=== PATIENT | male | born 1955 | race African-American/Black ===

== ENCOUNTER 2019-05-01 05:21 | Inpatient (IN) | payer MEDICARE, MEDICAID ==
[~2019-05-01] VITALS: Ht 180.3 cm; Wt 136.1 kg
[2019-05-01] VITALS (31 sets, daily range): BP systolic 107–187; BP diastolic 63–96
[~2019-05-01 05:21] MED LIST: ACET-2178 PO; ALLO100T PO; AMLO2.5T45 PO; ASPI-1393 PO; BENA20TA10 PO; COLC0.6T66 PO; DOCU-150 PO; HYDR-519 PO; INDO25CA18 PO; TRAM50TA3 PO
[2019-05-01] MEDS ORDERED: THROMBIN (BOVINE) 5000 UNITS/VIAL TOP ONE (06:12)
[2019-05-01] MEDS ORDERED: LIDOCAINE HCL/EPINEPHRINE 1%-EPI 1:100,000 20 ML VIAL ONE ×2 (06:13→06:24)
[2019-05-01] MEDS ORDERED: BACITRACIN 50,000 UNITS/VIAL ONE (06:13)
[2019-05-01] MEDS ORDERED: LACTATED RINGERS 1,000 ML IV SCH (06:20)
[2019-05-01] MEDS ORDERED: GLYCOPYRROLATE 0.2 MG/ML 2ML VIAL ONE (06:49)
[2019-05-01] MEDS ORDERED: NEOSTIGMINE METHYLSULFATE 1MG/ML 10 ML VIAL ONE (06:49)
[2019-05-01] MEDS ORDERED: PROPOFOL 200MG/20ML VIAL IV ONE ×2 (06:49→07:57)
[2019-05-01] MEDS ORDERED: FENTANYL CITRATE/PF 50MCG/ML 2ML VIAL ONE ×2 (06:49→08:03)
[2019-05-01] MEDS ORDERED: MIDAZOLAM HCL 2 MG/2 ML VIAL ONE (06:49)
[2019-05-01] MEDS ORDERED: ROCURONIUM BROMIDE 10MG/ML VIAL 5ML IV ONE ×3 (06:49→07:55)
[2019-05-01] MEDS ORDERED: LIDOCAINE HCL/PF 1% 10 MG/ML 5ML VIAL ONE (06:50)
[2019-05-01] MEDS ORDERED: DEXAMETHASONE 4MG/ML 1ML VIAL ONE (06:51)
[2019-05-01] MEDS ORDERED: ONDANSETRON HCL 4MG/2ML INJ ONE (06:51)
[2019-05-01] MEDS ORDERED: SODIUM CHLORIDE 0.9% 10ML VIAL ONE (06:51)
[2019-05-01] MEDS ORDERED: SUCCINYLCHOLINE CHLORIDE 200MG/10ML IV ONE (06:51)
[2019-05-01] MEDS ORDERED: CEFAZOLIN SODIUM 1000MG/VIAL ONE (06:51)
[2019-05-01] MEDS ORDERED: METOCLOPRAMIDE HCL 10MG/2ML VIAL ONE (06:51)
[2019-05-01] MEDS ORDERED: PHENYLEPHRINE HCL 10 MG/ML 1ML (IV VIAL) IV ONE (06:51)
[2019-05-01] MEDS ORDERED: EPHEDRINE SULFATE 50MG/ML VIAL ONE (06:51)
[2019-05-01] MEDS ORDERED: FENTANYL CITRATE/PF 50MCG/ML 5ML VIAL ONE (06:51)
[2019-05-01] MEDS ORDERED: GABA600T PO (08:45)
[2019-05-01] MEDS ORDERED: TAMS0.4C31 PO (08:45)
[2019-05-01] MEDS ORDERED: GABA800T97 PO (08:45)
[2019-05-01] MEDS ORDERED: MORP15TA67 PO (08:45)
[2019-05-01] MEDS ORDERED: BENA1TAB21 PO (08:45)
[2019-05-01] MEDS ORDERED: MELO-106 PO (08:47)
[2019-05-01] MEDS ORDERED: NAPR220T66 PO (08:47)
[2019-05-01] MEDS ORDERED: LABETALOL HCL 5MG/ML VIAL 20ML IV ONE (09:44)
[2019-05-01] MEDS ORDERED: ONDANSETRON HCL 4MG/2ML INJ IV PRN (10:00)
[2019-05-01] MEDS ORDERED: DIPHENHYDRAMINE INJ IV PRN (11:00)
[2019-05-01] MEDS ORDERED: NALOXONE INJ IV PRN (11:00)
[2019-05-01] MEDS ORDERED: ONDANSETRON INJ IV PRN (11:00)
[2019-05-01] MEDS: MORPHINE SULFATE 4 MG/ML CPJ (NOT FOR IM USE) IV PRN (11:03)
[2019-05-01] MEDS: DEXT 5%/LACTATED RINGERS 1,000 ML IV SCH ×2 (11:06→18:10)
[2019-05-01] MEDS: HYDROMORPHONE PCA 10MG/50ML IV PRN (11:24)
[2019-05-01] MEDS: DEXAMETHASONE 4MG/ML 1ML VIAL IV SCH ×3 (12:18→23:50)
[2019-05-01] MEDS ORDERED: BISACODYL 5MG TABLET PO PRN (13:15)
[2019-05-01] MEDS: NICARDIPINE 100 MG in SODIUM CHLORIDE 0.9% 60 ML IV PRN (13:19)
[2019-05-01] MEDS ORDERED: CEFAZOLIN SODIUM 1000MG/VIAL IV SCH (14:00)
[2019-05-01] MEDS: CEFAZOLIN 1000MG PREMIX 50 ML IV SCH ×2 (14:05→21:19)
[2019-05-01] MEDS: IPRATROPIUM/ALBUTEROL 0.5-3(2.5)MG/3ML NEB HHN SCH (20:51)
[2019-05-02] VITALS (90 sets, daily range): BP systolic 101–187; BP diastolic 51–106
[2019-05-02] MEDS: IPRATROPIUM/ALBUTEROL 0.5-3(2.5)MG/3ML NEB HHN SCH ×4 (01:31→20:12)
[2019-05-02] MEDS: DEXT 5%/LACTATED RINGERS 1,000 ML IV SCH ×4 (03:00→21:29)
[2019-05-02] MEDS: CEFAZOLIN 1000MG PREMIX 50 ML IV SCH ×3 (05:12→21:29)
[2019-05-02] MEDS: DEXAMETHASONE 4MG/ML 1ML VIAL IV SCH ×2 (05:12→11:48)
[2019-05-02] MEDS: HYDROMORPHONE PCA 10MG/50ML IV PRN ×2 (05:43→20:10)
[2019-05-02 05:49] LABS: HEMATOCRIT. 36.4 % (42.0-52.0); HEMOGLOBIN. 12.3 g/dL (14.0-18.0); MEAN CORPUSCULAR HEMOGLOBIN 30.4 pg (28.0-32.0); MEAN PLATELET VOLUME 7.4 fl (7.4-10.4); PLATELET 263 x1000/uL (130-400); RED BLOOD CELL COUNT 4.04 mill/uL (4.7-6.1); RED CELL DISTRIBUTION WIDTH 14.7 % (11.6-14.6)
[2019-05-02 06:37] LABS: CHLORIDE 105 mEq/L (98-107)
[2019-05-02] MEDS: NICARDIPINE 100 MG in SODIUM CHLORIDE 0.9% 60 ML IV PRN ×2 (07:07→18:34)
[2019-05-02] MEDS: DOCUSATE SODIUM 250MG CAPSULE PO SCH (08:51)
[2019-05-02] MEDS: AMLODIPINE 5MG TABLET PO SCH (08:53)
[2019-05-02] MEDS: BENAZEPRIL 10MG TABLET PO SCH (08:53)
[2019-05-02] MEDS ORDERED: DIAZEPAM 5 MG TABLET PO PRN (10:30)
[2019-05-02] MEDS: MORPHINE SULFATE 4 MG/ML CPJ (NOT FOR IM USE) IV PRN (11:49)
[2019-05-02 12:29] LABS: PLATELET ESTIMATE NORMAL
[2019-05-02] MEDS: HYDROCODONE/APAP 7.5/325MG 1 TAB TABLET PO PRN ×2 (16:08→21:28)
[2019-05-03] VITALS (75 sets, daily range): BP systolic 96–159; BP diastolic 54–85
[2019-05-03] MEDS: HYDROCODONE/APAP 7.5/325MG 1 TAB TABLET PO PRN ×3 (04:22→21:38)
[2019-05-03] MEDS: NICARDIPINE 100 MG in SODIUM CHLORIDE 0.9% 60 ML IV PRN ×2 (04:23→16:15)
[2019-05-03] MEDS: CEFAZOLIN 1000MG PREMIX 50 ML IV SCH (05:37)
[2019-05-03 06:18] LABS: HEMATOCRIT. 35.3 % (42.0-52.0); HEMOGLOBIN. 12.1 g/dL (14.0-18.0); MEAN CORPUSCULAR HEMOGLOBIN 30.9 pg (28.0-32.0); MEAN PLATELET VOLUME 7.6 fl (7.4-10.4); PLATELET 272 x1000/uL (130-400); RED BLOOD CELL COUNT 3.92 mill/uL (4.7-6.1); RED CELL DISTRIBUTION WIDTH 14.8 % (11.6-14.6)
[2019-05-03 06:24] LABS: CHLORIDE 106 mEq/L (98-107)
[2019-05-03 07:27] LABS: PLATELET ESTIMATE NORMAL
[2019-05-03] MEDS: DOCUSATE SODIUM 250MG CAPSULE PO SCH (09:11)
[2019-05-03] MEDS: AMLODIPINE 5MG TABLET PO SCH ×2 (09:12→20:19)
[2019-05-03] MEDS: BENAZEPRIL 10MG TABLET PO SCH ×2 (09:12→20:19)
[2019-05-03] MEDS: IPRATROPIUM/ALBUTEROL 0.5-3(2.5)MG/3ML NEB HHN PRN ×3 (09:27→21:11)
[2019-05-03] MEDS: NEBIVOLOL HCL 5 MG TABLET PO SCH (13:28)
[2019-05-03] MEDS: HYDROMORPHONE PCA 10MG/50ML IV PRN (17:02)
[2019-05-04] VITALS (39 sets, daily range): BP systolic 108–171; BP diastolic 46–92
[2019-05-04 05:42] LABS: BASOPHILS % 0.6 % (0.0-2.0); EOSINOPHILS % 0.1 % (0.0-5.0); HEMATOCRIT. 36.4 % (42.0-52.0); HEMOGLOBIN. 12.3 g/dL (14.0-18.0); LYMPHOCYTES % 13.2 % (20.0-50.0); MEAN CORPUSCULAR HEMOGLOBIN 30.5 pg (28.0-32.0); MEAN CORPUSCULAR VOLUME 90.3 fL (80.0-94.0); MEAN PLATELET VOLUME 7.5 fl (7.4-10.4); MONOCYTES % 7.5 % (2.0-8.0); NEUTROPHILS % 78.6 % (40.0-76.0); PLATELET 251 x1000/uL (130-400); RED BLOOD CELL COUNT 4.03 mill/uL (4.7-6.1); RED CELL DISTRIBUTION WIDTH 15.1 % (11.6-14.6)
[2019-05-04 06:14] LABS: CHLORIDE 105 mEq/L (98-107)
[2019-05-04] MEDS: AMLODIPINE 5MG TABLET PO SCH ×2 (08:45→20:03)
[2019-05-04] MEDS: NEBIVOLOL HCL 5 MG TABLET PO SCH (08:45)
[2019-05-04] MEDS: DOCUSATE SODIUM 250MG CAPSULE PO SCH (08:45)
[2019-05-04] MEDS: BENAZEPRIL 10MG TABLET PO SCH ×2 (08:46→20:02)
[2019-05-04] MEDS: MORPHINE SULFATE 4 MG/ML CPJ (NOT FOR IM USE) IV PRN ×3 (08:47→17:49)
[2019-05-04] MEDS: LIDOCAINE 5% PATCH TOP SCH (10:09)
[2019-05-04] MEDS: HYDROCODONE/APAP 7.5/325MG 1 TAB TABLET PO PRN ×2 (10:50→19:47)
[2019-05-04] MEDS: GABAPENTIN 300MG CAPSULE PO SCH ×2 (13:25→22:41)
[2019-05-05] VITALS: BP 142/58
[2019-05-05] MEDS: MORPHINE SULFATE 4 MG/ML CPJ (NOT FOR IM USE) IV PRN (02:57)
[2019-05-05] MEDS: HYDROCODONE/APAP 7.5/325MG 1 TAB TABLET PO PRN ×3 (03:17→15:13)
[2019-05-05 04:00] VITALS: BP 102/64
[2019-05-05] MEDS: GABAPENTIN 300MG CAPSULE PO SCH ×2 (05:28→15:12)
[2019-05-05 08:00] VITALS: BP 132/65
[2019-05-05] MEDS: LIDOCAINE 5% PATCH TOP SCH (09:00)
[2019-05-05] MEDS: DOCUSATE SODIUM 250MG CAPSULE PO SCH (09:00)
[2019-05-05] MEDS: AMLODIPINE 5MG TABLET PO SCH (09:29)
[2019-05-05] MEDS: NEBIVOLOL HCL 5 MG TABLET PO SCH (09:30)
[2019-05-05] MEDS: BENAZEPRIL 10MG TABLET PO SCH (09:30)
[2019-05-05 12:00] VITALS: BP 104/67
[2019-05-05 16:00] VITALS: BP 119/47
[2019-05-05 16:57] VITALS: BP 119/47
== END 2019-05-05 17:18 | DRG 471 ==
LOC: OR 05:21 → MICUSO 05:22 → 6EST 05-04 12:58
PROVIDERS: ADMIT Neurological Surgery; ATTEND Neurological Surgery
PROC: 0RG2071 Fusion of 2 or more Cervical Vertebral Joints with Autologous Tissue Substitute, Posterior Approach, Posterior Column, Open Approach (ICD-10-PCS; principal; 2019-05-02)
PROC: 01N10ZZ Release Cervical Nerve, Open Approach (ICD-10-PCS; 2019-05-02)
PROC: 4A11X4G Monitoring of Peripheral Nervous Electrical Activity, Intraoperative, External Approach (ICD-10-PCS; 2019-05-02)
PROC: 5A09357 Assistance with Respiratory Ventilation, Less than 24 Consecutive Hours, Continuous Positive Airway Pressure (ICD-10-PCS; 2019-05-04)
PROC: BR101ZZ Fluoroscopy of Cervical Spine using Low Osmolar Contrast (ICD-10-PCS; 2019-05-04)
DX: M48.02 Spinal stenosis, cervical region (principal); G82.50 Quadriplegia, unspecified; J98.11 Atelectasis; M47.12 Other spondylosis with myelopathy, cervical region; M54.10 Radiculopathy, site unspecified; D64.9 Anemia, unspecified; E11.42 Type 2 diabetes mellitus with diabetic polyneuropathy; E11.65 Type 2 diabetes mellitus with hyperglycemia; E78.00 Pure hypercholesterolemia, unspecified; F17.210 Nicotine dependence, cigarettes, uncomplicated; G47.33 Obstructive sleep apnea (adult) (pediatric); G89.4 Chronic pain syndrome; I10 Essential (primary) hypertension; R91.1 Solitary pulmonary nodule; I25.10 Atherosclerotic heart disease of native coronary artery without angina pectoris; M10.9 Gout, unspecified; R13.10 Dysphagia, unspecified; Z82.49 Family history of ischemic heart disease and other diseases of the circulatory system; Z83.3 Family history of diabetes mellitus; Z79.84 Long term (current) use of oral hypoglycemic drugs
CPT/HCPCS: 36415; 72040; 76000; 80048; 82962; 83735; 86850; 86900; 87493; 88304; 88311; 92610; 93005; 94640; 94660; 97110; 97162; 97166; 97530; 97535; J0330; J0690; J1100; J1170; J2250; J2270; J2370; J2405; J2704; J2710; J2765; J3010; J3490; J7050; J7121; J7620

== ENCOUNTER 2020-03-20 15:13 | Inpatient (IN) | payer MEDICARE, MEDICAID, OTHER ==
[~2020-03-20] VITALS: Ht 182.9 cm; Wt 137.9 kg
[2020-03-20 16:30] LABS: BASOPHILS % 0.8 % (0.0-2.0); EOSINOPHILS % 2.9 % (0.0-5.0); HEMATOCRIT. 36.5 % (42.0-52.0); HEMOGLOBIN. 12.6 g/dL (14.0-18.0); LYMPHOCYTES % 20.2 % (20.0-50.0); MEAN CORPUSCULAR HEMOGLOBIN 31.3 pg (28.0-32.0); MEAN CORPUSCULAR VOLUME 90.9 fL (80.0-94.0); MEAN PLATELET VOLUME 7.1 fl (7.4-10.4); MONOCYTES % 6.4 % (2.0-8.0); NEUTROPHILS % 69.7 % (40.0-76.0); PLATELET 222 x1000/uL (130-400); RED BLOOD CELL COUNT 4.02 mill/uL (4.7-6.1); RED CELL DISTRIBUTION WIDTH 13.8 % (11.6-14.6)
[2020-03-20 16:36] LABS: CHLORIDE 106 mEq/L (98-107)
[2020-03-20 16:38] LABS: PROTHROMBIN TIME 10.7 sec (9.6-11.0)
[2020-03-20] MEDS ORDERED: FUROSEMIDE 20MG/2ML VIAL IVP ONE (20:15)
[2020-03-20] MEDS ORDERED: GUAIFENESIN 200MG/10ML SUGAR FREE UDC PO PRN (23:15)
[2020-03-20] MEDS ORDERED: LORAZEPAM 2MG/ML CPJ IV PRN (23:15)
[2020-03-20] MEDS ORDERED: CLONIDINE 0.1MG TABLET PO PRN (23:15)
[2020-03-20] MEDS ORDERED: ONDANSETRON HCL 4MG/2ML INJ IV PRN (23:15)
[2020-03-20] MEDS ORDERED: DOCUSATE SODIUM 100MG CAPSULE PO PRN (23:15)
[2020-03-20] MEDS ORDERED: ACETAMINOPHEN 325MG TABLET PO PRN (23:15)
[2020-03-20] MEDS ORDERED: ENOXAPARIN 40MG/0.4ML SYR SUBCUT SCH (23:15)
[2020-03-20] MEDS ORDERED: MAGNESIUM/ALUMINUM HYDROXIDE/SIMETHICONE 30ML UDC PO PRN (23:15)
[2020-03-20] MEDS ORDERED: BACL-141 PO (23:37)
[2020-03-20] MEDS ORDERED: ALLO100T PO (23:37)
[2020-03-20] MEDS ORDERED: GABA800T PO (23:37)
[2020-03-20] MEDS ORDERED: BENA5TAB6 PO (23:37)
[2020-03-20] MEDS ORDERED: AMLO5TAB88 PO (23:37)
[2020-03-20 23:50] VITALS: BP 132/68
[2020-03-21] VITALS: BP 132/57
[2020-03-21] MEDS: HYDROCODONE/ACETAMINOPHEN 5/325MG TABLET PO PRN ×3 (00:26→21:06)
[2020-03-21 04:00] VITALS: BP 112/56
[2020-03-21 07:10] LABS: BASOPHILS % 0.9 % (0.0-2.0); EOSINOPHILS % 4.3 % (0.0-5.0); HEMATOCRIT. 33.4 % (42.0-52.0); LYMPHOCYTES % 32.5 % (20.0-50.0); MEAN CORPUSCULAR HEMOGLOBIN 32.6 pg (28.0-32.0); MEAN CORPUSCULAR VOLUME 90.8 fL (80.0-94.0); NEUTROPHILS % 53.3 % (40.0-76.0); RED BLOOD CELL COUNT 3.68 mill/uL (4.7-6.1); RED CELL DISTRIBUTION WIDTH 13.8 % (11.6-14.6)
[2020-03-21 07:22] LABS: CHLORIDE 106 mEq/L (98-107)
[2020-03-21 08:00] VITALS: BP 105/43
[2020-03-21 08:51] LABS: MEAN PLATELET VOLUME 7.8 fl (7.4-10.4); PLATELET 169 x1000/uL (130-400)
[2020-03-21] MEDS: ENOXAPARIN 40MG/0.4ML SYR SUBCUT SCH ×2 (09:00→21:07)
[2020-03-21] MEDS: ALLOPURINOL 100 MG TABLET PO SCH (11:33)
[2020-03-21] MEDS: FUROSEMIDE 40MG/4ML VIAL IVP SCH (11:33)
[2020-03-21] MEDS: GABAPENTIN 100MG CAPSULE PO SCH ×2 (11:33→21:05)
[2020-03-21 12:00] VITALS: BP 112/55
[2020-03-21] MEDS ORDERED: PNEUMOCOCCAL 23-VAL P-SAC VAC 0.5 ML IM ONE (12:00)
[2020-03-21 16:00] VITALS: BP 121/58
[2020-03-21 20:00] VITALS: BP 100/56
[2020-03-22] VITALS: BP 106/58
[2020-03-22 04:00] VITALS: BP 103/53
[2020-03-22] MEDS: HYDROCODONE/ACETAMINOPHEN 5/325MG TABLET PO PRN ×3 (05:33→21:14)
[2020-03-22 06:43] LABS: BASOPHILS % 0.8 % (0.0-2.0); EOSINOPHILS % 4.2 % (0.0-5.0); HEMATOCRIT. 36.2 % (42.0-52.0); HEMOGLOBIN. 12.3 g/dL (14.0-18.0); LYMPHOCYTES % 29.8 % (20.0-50.0); MEAN CORPUSCULAR HEMOGLOBIN 30.8 pg (28.0-32.0); MEAN CORPUSCULAR VOLUME 90.7 fL (80.0-94.0); MEAN PLATELET VOLUME 7.6 fl (7.4-10.4); MONOCYTES % 10.3 % (2.0-8.0); NEUTROPHILS % 54.9 % (40.0-76.0); PLATELET 212 x1000/uL (130-400); RED BLOOD CELL COUNT 3.99 mill/uL (4.7-6.1); RED CELL DISTRIBUTION WIDTH 13.8 % (11.6-14.6)
[2020-03-22 07:22] LABS: CHLORIDE 106 mEq/L (98-107)
[2020-03-22 08:00] VITALS: BP 101/60
[2020-03-22] MEDS: ENOXAPARIN 40MG/0.4ML SYR SUBCUT SCH ×2 (08:27→20:17)
[2020-03-22] MEDS: GABAPENTIN 100MG CAPSULE PO SCH ×2 (08:27→20:17)
[2020-03-22] MEDS: ALLOPURINOL 100 MG TABLET PO SCH (08:28)
[2020-03-22] MEDS: FUROSEMIDE 40MG/4ML VIAL IVP SCH (08:28)
[2020-03-22 12:00] VITALS: BP 106/67
[2020-03-22 16:00] VITALS: BP 128/65
[2020-03-22 20:00] VITALS: BP 110/53
[2020-03-23] VITALS: BP 99/60
[2020-03-23 04:00] VITALS: BP 113/56
[2020-03-23 08:00] VITALS: BP 106/55
[2020-03-23] MEDS: GABAPENTIN 100MG CAPSULE PO SCH (08:25)
[2020-03-23] MEDS: ENOXAPARIN 40MG/0.4ML SYR SUBCUT SCH (08:25)
[2020-03-23] MEDS: ALLOPURINOL 100 MG TABLET PO SCH (08:25)
[2020-03-23] MEDS: FUROSEMIDE 40MG/4ML VIAL IVP SCH (08:25)
[2020-03-23 10:35] VITALS: BP 106/55
[2020-03-23 12:00] VITALS: BP 130/68
== END 2020-03-23 12:47 | disposition home or self-care (01) | DRG 948 ==
LOC: ER 15:13 → 6EST 20:06 → EDBEDREQ 20:12 → EDBEDREQSVC 20:12 → EDBEDREQTM 20:12 → ENRESERV 21:24 → 6EST 03-21 00:13
PROVIDERS: ADMIT Hospitalist; ATTEND Hospitalist
DX: R60.0 Localized edema (principal); E78.00 Pure hypercholesterolemia, unspecified; I10 Essential (primary) hypertension; M10.9 Gout, unspecified; I25.10 Atherosclerotic heart disease of native coronary artery without angina pectoris; M19.90 Unspecified osteoarthritis, unspecified site; G89.29 Other chronic pain; E11.42 Type 2 diabetes mellitus with diabetic polyneuropathy; R53.1 Weakness
CPT/HCPCS: 36415; 71045; 80053; 83605; 83735; 83880; 84484; 85025; 93005; 93970; 96374; 97110; 97116; 97162; 97166; 97530; 97535; 99285; J1650; J1940

== ENCOUNTER 2022-10-16 17:01 | Emergency (ER) | payer MEDICARE, MEDICAID ==
[~2022-10-16] VITALS: Ht 177.8 cm; Wt 122.0 kg
[~2022-10-16 17:01] MED LIST changes: -ACET-2178 PO; -AMLO2.5T45 PO; +AMLO5TAB88 PO; -ASPI-1393 PO; +BACL-141 PO; -BENA20TA10 PO; +BENA5TAB40 PO; -COLC0.6T66 PO; -DOCU-150 PO; +GABA800T PO; -HYDR-519 PO; -INDO25CA18 PO; -TRAM50TA3 PO
[2022-10-16] MEDS ORDERED: MORPHINE SULFATE 4 MG/ML CPJ (NOT FOR IM USE) IV ONE (18:30)
[2022-10-16 19:25] LABS: BASOPHILS % 0.5 % (0.0-2.0); EOSINOPHILS % 4.1 % (0.0-5.0); HEMATOCRIT. 29.9 % (42.0-52.0); HEMOGLOBIN. 9.7 g/dL (14.0-18.0); LYMPHOCYTES % 15.5 % (20.0-50.0); MEAN CORPUSCULAR HEMOGLOBIN 26.3 pg (28.0-32.0); MEAN PLATELET VOLUME 7.3 fl (7.4-10.4); MONOCYTES % 8.2 % (2.0-8.0); NEUTROPHILS % 71.7 % (40.0-76.0); PLATELET 314 x1000/uL (130-400); RED BLOOD CELL COUNT 3.69 mill/uL (4.7-6.1); RED CELL DISTRIBUTION WIDTH 16.4 % (11.6-14.6)
[2022-10-16 19:27] LABS: CHLORIDE 106 mEq/L (98-107)
[2022-10-16] MEDS ORDERED: KETOROLAC 30MG/ML VIAL IV ONE (20:00)
[2022-10-16] MEDS ORDERED: KETOROLAC 30MG/ML VIAL IV NR (22:45)
[2022-10-17] VITALS: BP 138/62
== END 2022-10-17 00:36 ==
LOC: ER 17:01 → CANBEDREQ 10-17 07:20
DX: M17.11 Unilateral primary osteoarthritis, right knee (principal); I10 Essential (primary) hypertension; M19.90 Unspecified osteoarthritis, unspecified site; I25.10 Atherosclerotic heart disease of native coronary artery without angina pectoris; E78.00 Pure hypercholesterolemia, unspecified; E11.9 Type 2 diabetes mellitus without complications; Z96.653 Presence of artificial knee joint, bilateral
CPT/HCPCS: 36415; 73560; 80053; 84484; 85025; 93005; 96374; 96375; 99285; J1885; J2270

== ENCOUNTER 2023-05-15 10:15 | Emergency (ER) | payer MEDICARE ==
[~2023-05-15] VITALS: Ht 180.3 cm; Wt 131.9 kg
[2023-05-15 11:30] VITALS: BP 123/74
[2023-05-15] MEDS ORDERED: LIDOCAINE 5% PATCH TOP SCH (11:30)
[2023-05-15] MEDS ORDERED: KETOROLAC 60MG/2ML VIAL IM ONE (11:30)
[2023-05-15] MEDS ORDERED: HYDROCODONE/ACETAMINOPHEN 10/325MG TABLET PO ONE (11:30)
[2023-05-15] MEDS ORDERED: GABAPENTIN 300MG CAPSULE PO ONE (11:30)
[2023-05-15] MEDS ORDERED: GABA-532 MT (13:00)
[2023-05-15] MEDS ORDERED: HYDR-4001 MT (13:00)
[2023-05-15] MEDS ORDERED: LIDO1ADH23 TP (13:00)
== END 2023-05-15 14:25 | disposition home or self-care (01) ==
LOC: ER 10:48
DX: G89.29 Other chronic pain (principal); M25.561 Pain in right knee; I10 Essential (primary) hypertension; E78.00 Pure hypercholesterolemia, unspecified; E11.9 Type 2 diabetes mellitus without complications
CPT/HCPCS: 73560; 93971; 96372; 99285; J1885